=== PATIENT | male | born 1995 | race Two or more races ===

== ENCOUNTER → 2025-01-25 | Outpatient (BNVA) | payer MEDICAID, SELFPAY | END | disposition home or self-care (01) | PROVIDERS: PCP Family Medicine; Referring Provider Family Medicine; Visit Provider Urology | DX: Z30.2 Encounter for sterilization (principal); N40.0 Benign prostatic hyperplasia without lower urinary tract symptoms; E66.9 Obesity, unspecified; Z68.41 Body mass index [BMI] 40.0-44.9, adult; F17.290 Nicotine dependence, other tobacco product, uncomplicated | CPT/HCPCS: 81003; 99212; G0463 ==

== ENCOUNTER 2025-02-28 09:00 | Day surgery (SDC) | payer MEDICAID, SELFPAY ==
[2025-02-28] VITALS (9 sets, daily range): BP systolic 106–140; BP diastolic 57–87; PULSE 67–88; RESP 10–20; TEMP 36.1–36.4; O2SAT 95–100; BMI 41.4
--- NOTE | 2025-02-28 12:05 | SUR.PHASEI ---
pt received from OR in recovery bay 5. pt obtunded, breathing unlabored on nc 6l, oral airway in place. v/s stable. pt dressing to scrotal area cdi. report received from Yann BATEMAN and Dr. Vanessa.
--- NOTE | 2025-02-28 12:06 | PD.SUROPNT ---
Date of Procedure 02/28/25 Pre Op Diagnosis Elective sterilization Post Op Diagnosis Same Procedure Bilateral vasectomy Findings Bilateral vas no pathology Procedure Description Indication for procedure this is 29-year-old gentleman this patient was seen in urology office on consultation for bilateral vasectomy he is with children desired bilateral vasectomy procedure and complications were discussed with the patient in great detail informed consent is obtained he understood very well there is no warranty for permanent sterilization literature regarding bilateral vasectomy was provided to the patient Procedure patient was brought to the operating room in a satisfactory condition after appropriate premedication was put on the operating table in a supine position he was appropriately identified by surgeon and operating room staff site scope and indications of the procedure were reconfirmed with the patient general anesthesia was given uneventfully position parts were prepped and draped in a usual sterile fashion. Next the right vas deferens was palpated between 2 fingers and a thumb 2% lidocaine with quarter percent Marcaine was instilled appropriately vertical skin incision was made proper hemostasis was secured. Next the vas deferens was brought into the incision it was from its various fascial coverings between 2 silver clips centimeter of the vas deferens was excised. The lumen of the vas deferens was diathermized with coagulation diathermy distal end of the vas deferens was buried between various fascial layers. Skin was approximated with 3-0 chromic. Similar procedure was repeated on the opposite side. Next this sterile dressings were applied. Pressure bandage was given Patient having tolerated the procedure well and was sent to recovery room in a satisfactory condition to be discharged home with full postoperative instructions were verbally as well as in writing to be followed in urology office in 12 weeks' time. Anesthesia GETA Pathology / specimen None Estimated Blood Loss 0.3 Condition Stable Disposition PACU Surgeon Fernando Carroll MD Surgical Staff Operation Date: 02/28/25 11:00 Case Staff Anesthesiologist: Raymundo Vanessa
[2025-02-28] MEDS: traMADol HCL 50 MG TABLET PO (12:56)
--- NOTE | 2025-02-28 13:16 | SUR.PHASEII ---
1238: Pt lying in [place] with eyes closed, breathing unlabored, VS stable, dressing to scrotum clean, dry, and intact, report from Juan Miguel BATEMAN 1245: pt tolerating oral fluids without difficulty swallowing or n/v 1316: report to Juan Miguel BATEMAN
--- NOTE | 2025-02-28 13:24 | SUR.PHASEII ---
pt awake and alert, breathing unlabored on room air. v/s stable. pt dressing to scrotal area cdi. pt able to ambulate to wheelchair with steady gait. d/c instructions given with s/o Kanika in room, all questions anwered. pt d/c via wheelchair with all belongings.
== END 2025-02-28 13:24 | disposition home or self-care (01) ==
PROVIDERS: PCP Family Medicine; Referring Provider Urology; Visit Provider Urology
PROC: (CPT 55250; principal; 2025-02-28 10:45)
DX: Z30.2 Encounter for sterilization (principal)
CPT/HCPCS: 55250; A4217; A4649; J1100; J1885; J2250; J2405; J2704; J3010; J3490; A9270